=== PATIENT | female | born 1950 | race Caucasian/White ===

== ENCOUNTER 2017-01-19 19:51 | Emergency (ER) | payer OTHER ==
[~2017-01-19] VITALS: Ht 167.6 cm; Wt 99.8 kg
[2017-01-19] MEDS ORDERED: ERYTHROMYCIN E3.5 G1 OPHTHALMIC (21:32)
[2017-01-19 21:50] VITALS: BP 188/98
== END 2017-01-19 21:50 | disposition home or self-care (01) ==
LOC: ER 19:51
DX: S05.02XA Injury of conjunctiva and corneal abrasion without foreign body, left eye, initial encounter (principal); X58.XXXA Exposure to other specified factors, initial encounter; Y93.89 Activity, other specified; Y92.89 Other specified places as the place of occurrence of the external cause; Y99.9 Unspecified external cause status

== ENCOUNTER 2020-06-26 17:43 | Emergency (ER) | payer OTHER ==
[~2020-06-26] VITALS: Ht 167.6 cm; Wt 90.3 kg
[~2020-06-26 17:43] MED LIST: ERYTHROMYCIN E3.5 G1 OPHTHALMIC; TOBRAMYCIN SULFA5 M1 OPHTHALMIC
[2020-06-26] MEDS ORDERED: TOBRAMYCIN SULFA5 M1 OPHTHALMIC (19:32)
[2020-06-26] MEDS ORDERED: ULTRAM 50MG TAB50 MG PO (19:32)
[2020-06-26] MEDS ORDERED: IBUPROFEN 600600 M1 PO (19:32)
[2020-06-26 21:27] VITALS: BP 182/100
== END 2020-06-26 20:30 | disposition home or self-care (01) ==
LOC: ER 17:43
DX: H10.89 Other conjunctivitis (principal); B96.89 Other specified bacterial agents as the cause of diseases classified elsewhere; F17.210 Nicotine dependence, cigarettes, uncomplicated